=== PATIENT | female | born 1960 | race American Indian/Alaskan Native ===

== ENCOUNTER 2018-01-08 15:32 | Observation (INO) | payer BC, OTHER ==
[~2018-01-08] VITALS: Ht 170.2 cm; Wt 96.6 kg
--- OUTSIDE RECORDS SUMMARY | ~2018-01-08 | XMS | Clinical Summary ---
Demographics + + + | Address | [address] | | | [place] [address] | + + + | Home Phone | | + + + | Preferred Language | Unknown | + + + | Marital Status | Single | + + + | Jewish Affiliation | Unknown | + + + | Race | Unknown | + + + | Ethnic Group | Unknown | + + + Author + + + | Author | [facility] | | | and [place] | + + + | Organization | [facility] | | | and [place] | + + + | Address | Unknown | + + + | Phone | Unavailable | + + + Support + + + + + | Name | Relationship | Address | Phone | + + + + + | Carol Nichole | ECON | [address] | | | | | [place] | | | | | [phone] | | + + + + + Care Team Providers + +------+ + | Care Community Integration Specialist Name | Role | Phone | + +------+ + | Enoc Hayward PA-C | PP | | + +------+ + Allergies No Known Allergies Current Medications + + +-------+---------+------+------+-------+ | Prescription | Sig. | Disp. | Refills | Star | End | Statu | | | | | | t | Date | s | | | | | | Date | | | + + +-------+---------+------+------+-------+ | ibuprofen | Take 100 mg by mouth | | | | | Activ | | (ADVIL,MOTRIN) 100 | every 6 hours as | | | | | e | | MG tablet | needed for Fever. | | | | | | + + +-------+---------+------+------+-------+ Active Problems Not on file Social History + +-------+ +--------+------+ | Tobacco Use | Types | Packs/Day | Years | Date | | | | | Used | | + +-------+ +--------+------+ | Never Smoker | | | | | + +-------+ +--------+------+ + + +---------+ + | Alcohol Use | Drinks/We | oz/Week | Comments | | | ek | | | + + +---------+ + | Yes | | | occ | + + +---------+ + + + + | Sex Assigned at | Date Recorded | | | | + + + | Not on file | | + + + Last Filed Vital Signs + + + + | Vital Sign | Reading | Time Taken | + + + + | Blood Pressure | 146/74 | 11/20/20151729 PDT | + + + + | Pulse | 80 | 11/20/20151729 PDT | + + + + | Temperature | - | - | + + + + | Respiratory Rate | - | - | + + + + | Oxygen Saturation | 98% | 11/20/20151729 PDT | + + + + | Inhaled Oxygen | - | - | | Concentration | | | + + + + | Weight | 90.7 kg (200 lb) | 11/20/20151729 PDT | + + + + | Height | 170.2 cm (5' 7.01") | 11/20/20151729 PDT | + + + + | Body Mass Index | 31.32 | 11/20/20151729 PDT | + + + + Plan of Treatment + + + + + | Health Maintenance | Due Date | Last Done | Comments | + + + + + | Hepatitis C | | | | | Screening | 2 | | | + + + + + | Vaccine: | | | | | Dtap/Tdap/Td (1 - | 1 | | | | Tdap) | | | | + + + + + | Cervical Cancer | | | | | Screening (Pap) | 2 | | | + + + + + | BREAST CANCER | | | | | SCREENING (MAMM Q2 | 2 | | | | YEARS 50-74) | | | | + + + + + | Colorectal Cancer | | | | | Screening | 2 | | | | (Colonoscopy) | | | | + + + + + | Vaccine: Influenza | | | | | (#1) | 8 | | | + + + + + Results Not on filefrom Last 3 Months Insurance + +--------+ +--------+-------+---------+ | Payer | Benefi | Subscriber | Type | Phone | Address | | | t Plan | ID | | | | | | / | | | | | | | Group | | | | | + +--------+ +--------+-------+---------+ | [employer] | [place] | [id number] | Indemn | | | | | FIRST | | ity | | | | | WC | | | | | + +--------+ +--------+-------+---------+ + +--------+ +--------+ + + | Guarantor Name | Accoun | Relation to | Date | Phone | Billing Address | | | t Type | Patient | of | | | | | | | | | | + +--------+ +--------+ + + | BERNICE NICHOLE | Person | Self | [birth year] | [address] | | | al/Fam | | 1959 | | [place] | | | lisseth | | | | [phone] | + +--------+ +--------+ + + | 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
--- OUTSIDE RECORDS SUMMARY | ~2018-01-08 | XMS | Clinical Summary ---
Demographics + + + | Address | [address] | | | [place] [address] | + + + | Home Phone | | + + + | Preferred Language | Unknown | + + + | Marital Status | Single | + + + | Episcopalian Affiliation | Unknown | + + + | Race | Unknown | + + + | Ethnic Group | Unknown | + + + Author + + + | Author | [facility] | | | and [place] | + + + | Organization | [facility] | | | and [place] | [...] [place] | | | | | [address] | | + + + + + Care Team Providers + +------+ + | Care Tire Maker Name | Role | Phone | + [...] | | | + +--------+ +--------+-------+---------+ | [employer] | [employer] | [id number] | Indemn | | | | | [...] | Self | [birth year] | [address] | | | al/Fam | | 1959 | | [place] | | | l[place] | | | | [phone] | + +--------+ +--------+ + + | 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
--- OUTSIDE RECORDS SUMMARY | ~2018-01-08 | XMS | Clinical Summary ---
Demographics + + + | Address | [address] | | | [place] [address] | + + + | Home Phone | | + + + | Preferred Language | Unknown | + + + | Marital Status | Single | + + + | Gnosticism Affiliation | Unknown | + + + | Race | Unknown | + + + | Ethnic Group | Unknown | + + + Author + + + | Author | [facility] | | | and [place] | + + + | Organization | [facility] | | | and [place] | [...] [place] | | | | | [phone] | | + + + + + Care Team Providers + +------+ + | Care Director Mortgage Name | Role | Phone | + [...] | | | + +--------+ +--------+-------+---------+ | [employer] | [employer] | [id number] | Indemn | | | | | [...] | Self | [birth year] | [address] | | | al/Fam | | 1959 | | [place] | | | [place] | | | | [phone] | + +--------+ +--------+ + + | 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
[~2018-01-08 15:32] MED LIST: IBUPROFEN800 MG PO; NORCO 7.5-3251 EACH PO; TRAMADOL HCL50 MG PO
[2018-01-08] MEDS ORDERED: METFORMIN HCL500 MG PO (16:04)
--- NOTE | 2018-01-08 20:07 | NUR ---
PT TO FLOOR VIA STRETCHER WITH DEMETRIUS SUGGS. PT ABLE TO MOVE TO BED ON OWN. PAINFUL IN RLQ 4\10 OK WITH 5\10. HASN'T EATEN IN A COUPLE DAYS DUE TO FEELING UNWELL. TEMP 99. EDUCATED ON CALLING TO GET UP. NPO STATUS. PT DENIES CONCERNS.
--- NOTE | 2018-01-08 21:44 | NUR ---
PT OFF FLOOR WITH BANK TELLER VINNIE SUGGS FOR SURGERY. LR WITH STRAIGHT TUBING WITH PT. PRE SURGICAL SCRUB COMPLETE, CONTACTS OUT.
--- NOTE | 2018-01-09 00:12 | NUR ---
01/09/18 0012 Ángela Florez PT ARRIVES TO PACU WITH APNEIC SPELLS. SHE WILL INTERMITTENLY BEGIN TO SNORE, THEN STOP BREATHING. SHE EITHER JOLTS HERSELF AWAKE OR SHE HAS TO BE STIMULATED.
--- NOTE | 2018-01-09 01:10 | NUR ---
RECEIVED REPORT FROM VINNIE WOODY. ABD DRESSING CLEAN, DRY, AND INTACT. OTIS DRAIN DRAINING SEROUSANGUINOUS FLUID. HYPOACTIVE BOWEL TONES, ABD TENDER AND SOFT ON PALPATION. CONTINUOUS PULSE OX- O2 SATURATIONS WNL ON 2 L VIA NC. PT REPORTS PAIN 10/10, HOWEVER IS DROWSY AT THIS TIME. VISITORS IN ROOM. CALL LIGHT IN REACH.
--- NOTE | 2018-01-09 02:15 | NUR ---
NOTIFIED MD OF PTS PAIN AND DROWSINESS. TELEPHONE ORDER FOR PRN PAIN MEDICATIONS RECEIVED, REPEATED ORDER BACK.
--- NOTE | 2018-01-09 02:15 | NUR ---
IN ROOM FOR VITALS. PT SLEEPING, AWAKENS EASILY. VITALS STABLE. CONTINUOUS PULSE OX IN PLACE ON 2 L OXYGEN. CBG 178, SS INSULIN ADMINISTERED. MID ABD LAP SITE REINFORCED WITH GAUZE, SMALL AMOUNT OF SS DRAINAGE NOTED. PRN PAIN MEDICATION ADMINISTERED FOR 7/10 PAIN IN ABD. SCD'S IN PLACE, CALL LIGHT IN REACH.
--- NOTE | 2018-01-09 03:24 | NUR ---
IN PT ROOM FOR POST OP VITALS, PT SLEEPING, AWAKENS TO VOICE. VITALS STABLE, SATURATIONS 97% ON 2L OXGYEN BY NC. SCDS IN PLACE. SUBRAMANIAN DRAINING. CALL LIGHT IN REACH.
--- NOTE | 2018-01-09 04:15 | NUR ---
IN ROOM TO COMPLETE VITALS. PT ASLEEP, AWAKES EASILY. VITALS STABLE. CALL LIGHT IN REACH.
--- NOTE | 2018-01-09 06:02 | NUR ---
PT RETURNED TO FLOOR FROM SURGERY AT 0110. PT RECIEVED PRN PAIN MEDICATION X1 FOR PAIN 01/29 IN ABD. NO C.O. N/V. IVF INFUSING WNL. O2 SATURATIONS WNL ON 2 L NC. ABD DRESSING CLEAN, DRY, AND INTACT. 2 LAP SITE SUTURES AND STERI STRIPS INTACT, 1 SITE REINFORCED WITH GUAZE AND TAPE. OTIS DRAIN DRAINING SEROUSANGUINOUS FLUID. SCD'S IN PLACE.
--- NOTE | 2018-01-09 06:47 | NUR ---
IN ROOM TO ADMIN ABX. PT SLEEPING, AWAKENED EASILY. PT C.O. PAIN 10/29. PRN PAIN MEDICATIONS ADMINISTERED WITH CRACKERS. BOWEL TONES HYPOACTIVE, ABD SOFT AND TENDER ON PALPATION. EMPTIED OTIS DRAIN, 75 ML, SEROUSANGUINOUS FLUID. DRESSING CLEAN, DRY, AND INTACT. NO NEW DRAINAGE ON LAP SITES. CONTINOUS PULSE OX- SATURATIONS WNL ON 2 LITERS OXYGEN. CALL LIGHT IN REACH.
--- NOTE | 2018-01-09 08:04 | NUR ---
report recieved from police shift commander nurse. pt appears to be sleeping in bed. respirations equal and nonlabored. call light in reach.
--- NOTE | 2018-01-09 10:00 | NUR ---
FAMILY AT BEDSIDE. WATER REFRESHED. DENIES FURTHER NEEDS. CALL LIGHT IN REACH. SCD'S IN PLACE.
--- NOTE | 2018-01-09 11:26 | OR ---
[facility] [address], [place] [address] Signed DATE OF OPERATION: 01/09/2018 SURGEON: Adria Pastor MD PREOPERATIVE DIAGNOSES: 1. Acute perforated appendicitis. 2. Morbid obesity. POSTOPERATIVE DIAGNOSES: 1. Acute perforated appendicitis (advanced) with periappendiceal abscess. 2. Occult cirrhosis of liver. PROCEDURE: 1. Laparoscopy with conversion to open drainage of periappendiceal (pelvic) abscess. 2. Open appendectomy, prolonged, complicated, and difficult. 3. Irrigation of abdomen and placement of drain. ANESTHESIA: General endotracheal, Mitch Bondurant, WEBMETHODS CONSULTANT and local. DRAIN: 7 mm Seth. INDICATION: This 57-year-old morbidly obese [place] woman presented to the emergency room late in the day evaluated by Dr. Almazan where she was found to have tenderness in the right lower abdomen. A CT scan was performed, which showed appendicitis with severe inflammatory change in the right lower abdomen highly suggestive of perforation. She has been fluid resuscitated given intravenous antibiotics, Zosyn, and optimized for operation. It was noted on CT scan there may be fine nodular changes of the liver. She denied alcohol abuse in the present or in the past and is not known to have hepatitis. She is admitted to undergo appendectomy preferred by a laparoscopic approach mindful of the need for possible open procedure and other indicated procedures. The risks of bleeding, infection, and so forth were all reviewed, and well understood. FINDINGS: At laparoscopy she was found to have a dense inflammatory cicatrix of the right lower abdomen including small bowel loops obscuring the appendix in the retroperitoneum. The liver did, in fact, have cirrhotic changes. There was a somewhat distended gallbladder with cholesterolosis as visualized through the gallbladder wall with transillumination. Electronically Signed By: ADRIA PASTOR MD 01/09/18 1126 PATIENT NAME: PRABHA BARRERA OPERATIVE REPORT DATE OF : 64 REPORT #: [id number] PHYSICIAN: ADRIA PASTOR MD PCP: MERCEDEZ CORONA REPORT IS CONFIDENTIAL AND NOT TO BE RELEASED WITHOUT AUTHORIZATION [facility] [address], [place] [address] Signed There was no ascites proper however. Attempts at laparoscopic appendectomy were unsuccessful and conversion to open appendectomy was required. This allowed for drainage of periappendiceal abscess, as well as open appendectomy. The excision of the appendix was very prolonged, complicated, and difficult lasting 2 hours far longer than usual, but accomplished safely incompletely. A drain was placed after irrigation of the abdomen. There was no evidence of inflammatory bowel disease or neoplasm. DESCRIPTION OF PROCEDURE: The patient was brought to the operating room, given a general endotracheal anesthetic. Preoperative antibiotic Zosyn had been given. Sequential compression device stockings were used and heparin subcutaneously administered. Her obese abdomen was prepared with a chlorhexidine solution and draped sterilely. An infraumbilical incision was made and using an open Sanju cannula technique, the abdomen was entered and pneumoperitoneum achieved to a level of 14 mmHg of carbon dioxide gas. Intraabdominal inspection showed no sign of ascites, but did show cirrhotic changes of the liver. The gallbladder was somewhat distended and with cholesterolosis type pattern with transillumination. It was not the acutely inflamed organ, however. The appendix was obscured from view. There was a dense inflammatory rind apparent in the lower quadrant on the right side. A 12 mm epigastric port was placed and a camera was placed at that site. With single hand manipulation, the terminal ileum and cecal area was interrogated, but was very dense. The right lower abdominal 5 mm trocar was then placed and with two hand manipulation the cecum was more easily identified. There was a dense inflammatory cicatrix in the right lower quadrant adjacent to the ileum with very densely adherent small bowel matted loops. Various manipulations were undertaken to unroof and identify the appendix. The base of the appendix could be identified, but the appendix extended into the retroperitoneal medial position that was completely not able to be dissected with a laparoscopic approach. On that basis, conversion to open operation was deemed advisable. The site of the location of the cecum was marked in the abdominal wall. Trocars removed under direct visualization and fascial edges reapproximated at the umbilicus with interrupted 0 Vicryl suture. A transverse incision was made in the right lower abdomen. Dissection carried through the thick abdominal wall pannus. The external oblique was incised along its fibers. The internal oblique muscles and the transversus muscle and the peritoneum identified. The peritoneum was incised and the abdomen was entered. Large hand-held retractors were used to provide entry to the abdomen. Palpation within the Electronically Signed By: ADRIA PASTOR MD 01/09/18 1126 PATIENT NAME: PRABHA BARRERA OPERATIVE REPORT DATE OF : 64 REPORT #: [id number] PHYSICIAN: ADRIA PASTOR MD PCP: MERCEDEZ CORONA REPORT IS CONFIDENTIAL AND NOT TO BE RELEASED WITHOUT AUTHORIZATION [address] [address] Signed abdominal cavity showed a dense cicatrix and mass in the region of the cecum. With various manipulations, the cecum was delivered into the wound. The base of the appendix was identifiable that extended into a very dense inflammatory phlegmon. With various manipulations, a pelvic abscess/phlegmon was encountered and this was broken up and aspiration undertaken. Cultures were obtained. It was clear that the appendix was markedly inflamed, and had perforated. With meticulous care, the surrounding soft tissue was from the appendix. This took a considerable amount of time to ultimately identify the dilated thickened and markedly fibrotic appendix. It was from the mesoappendix and clips were applied as necessary for hemostasis. Ultimately, the distal 3rd of the appendix could be delivered into the wound and dissection was undertaken more proximally. Ultimately, the cecum and appendix could be more fully defined. The thickened markedly inflamed mesoappendix was divided and secured with 2-0 silk ties as appropriate. Once the appendix was skeletonized, one could see the perforated point which was in the first 3rd of the appendix. An Endo-BLAIRE stapling device was used to transect the appendix flush with the cecum. Irrigation was then undertaken copiously in the pelvis, the abdomen and the cecum. Once satisfied that hemostasis was complete after application of a few interrupted 2-0 Vicryl sutures the cecum was replaced in the abdominal cavity, and copious irrigation undertaken. A separate stab incision was made cephalad to the transverse lower abdominal incision and a 7 mm flat Seth drain insinuated into the right lower abdomen juxtaposed to the cecum itself. The peritoneum was reapproximated with running 2-0 PDS suture. Each muscular layer was irrigated with antibiotic containing saline solution and the muscular layers reapproximated with interrupted 2-0 PDS and external oblique similarly reapproximated. Subcutaneous tissue was irrigated with saline and skin closed with interrupted 3-0 Vicryl in a loose way to allow for egress of fluids as necessary. A few Steri-Strips were applied, and the incision was not made to be entirely tight. Mepilex silver sponge dressing was applied incorporating the drain exiting from the abdomen. The umbilical epigastric right lower quadrant incisions were reapproximated with interrupted 2-0 Vicryl, and Steri-Strips were applied. The patient was ultimately extubated and transferred to recovery in good condition. The operation was prolonged, complicated, and difficult related to extent of disease, the perforated appendix and of course her morbid obesity. Blood loss was estimated at approximately 50 mL. Adria Pastor MD Electronically Signed By: ADRIA PASTOR MD 01/09/18 1126 PATIENT NAME: PRABHA BARRERA OPERATIVE REPORT DATE OF : 64 REPORT #: [id number] PHYSICIAN: ADRIA PASTOR MD PCP: MERCEDEZ CORONA REPORT IS CONFIDENTIAL AND NOT TO BE RELEASED WITHOUT AUTHORIZATION [address] [address] Signed KAYLA/RAHEL /[id number] cc: Mercedez Corona Copies: MERCEDEZ CORONA ~ Electronically Signed By: ADRIA PASTOR MD 01/09/18 1126 PATIENT NAME: HOLLYPRABHA OPERATIVE REPORT DATE OF : 64 REPORT #: [id number] PHYSICIAN: ADRIA PASTOR MD PCP: MERCEDEZ CORONA REPORT IS CONFIDENTIAL AND NOT TO BE RELEASED WITHOUT AUTHORIZATION
--- NOTE | 2018-01-09 11:26 | HP ---
[facility] [address] [place] [address] Signed ADMISSION DATE: 01/08/2018 REASON FOR ADMISSION: Acute appendicitis, possibly perforated. HISTORY OF PRESENT ILLNESS: This 57-year-old woman had vague upper abdominal pain approximately 3 to 4 days ago, but this progressed, and now having right lower abdominal pain for at least 48 hours. She presented to the emergency room where she was found to have an elevated white count. She was evaluated by Dr. Almazan with high suspicion of appendicitis. A CT scan was performed, which confirmed appendicitis, but also possible perforation, though there was no well-formed abscess. She is admitted for further evaluation and care. PAST MEDICAL HISTORY: Significant for aqu-dogrpey-iboxyxjod diabetes mellitus. She has no other ongoing medical problems that she admits to at this time. She denies usual or chronic alcohol use though. Therefore, CT scan did describe possible nodularity of the liver without associated neoplasm nor sign of ascites. The patient is unmarried. She does have two adult children. She works at the [employer] and food and [employer]. She is a . REVIEW OF SYSTEMS: She denies any shortness of breath or chest pain. Has had no dysphagia, or dysuria. Denies any hematemesis or blood per rectum. She has no precordial chest pain or dyspnea. PHYSICAL EXAMINATION: GENERAL: An obese woman who does not look to be severely uncomfortable. Mucous membranes are dry. Trachea is midline. CHEST: Clear. HEART: Regular without murmur. ABDOMEN: Obese, but soft. Rovsing sign is positive. There is tenderness at McBurney point. She has no clinical evidence of ascites though she does have an obese abdomen. EXTREMITIES: No clubbing, cyanosis, or edema. Her sequential compression device stockings are in place. The patient is postmenopausal. CT scan report has been reviewed describing appendicitis with possible perforation and some nodularity to the liver, but no sign of ascites. ASSESSMENT: Electronically Signed By: ADRIA PASTOR MD 01/09/18 1126 PATIENT NAME: PRABHA BARRERA HISTORY AND PHYSICAL DATE OF : 64 REPORT #: [id number] PHYSICIAN: ADRIA PASTOR MD PCP: RENATO CORONA REPORT IS CONFIDENTIAL AND NOT TO BE RELEASED WITHOUT AUTHORIZATION [facility] [address] [place] [id number] Signed She has clinical findings and radiographic findings of appendicitis with possible perforation, but without well-formed abscess. She is tender in the McBurney's point and somewhat dehydrated. She has been started on Zosyn antibiotic by the emergency room physician and additional fluid will be given. She last ate this morning a piece of bread. We will plan for operation this evening if appropriate provided resuscitation is adequate. Discussed risks of operation including but not limited to, bleeding, infection, need for open rather than a laparoscopic approach, certain need for drain of perforation is noted, and other unforeseen complications including need for additional treatment. She understands all this and wished to proceed. MD KAYLA Cazares/FIDELL /[id number] cc: [facility] Copies: [facility] ~ Electronically Signed By: ADRIA PASTOR MD 01/09/18 1126 PATIENT NAME: PRABHA BARRERA HISTORY AND PHYSICAL DATE OF : 64 REPORT #: [id number] PHYSICIAN: ADRIA PASTOR MD PCP: RENATO CORONA REPORT IS CONFIDENTIAL AND NOT TO BE RELEASED WITHOUT AUTHORIZATION
--- NOTE | 2018-01-09 12:20 | NUR ---
PT REPORTED 7/10 PAIN. PRN TORIDOL GIVEN. DENIES FURTHER NEEDS.
--- NOTE | 2018-01-09 13:06 | NUR ---
DID PATIENT'S BLOOD SUGAR CHECK FOR LUNCH.
--- NOTE | 2018-01-09 13:16 | NUR ---
PT OOB TO AMBULATED HALLS WITH THIS NURSE. PT WAS ABLE TO 2 LAPS WITH FWW FOR STABILITY. PT REPORTED PAIN 5/10. DENIED NEED FOR INTERVENTION AT THIS TIME. PT BACK TO BED, CALL LIGHT IN REACH. REFRESHED PO WATER.
[2018-01-09] MEDS ORDERED: CRESTOR5 MG PO (14:09)
[2018-01-09] MEDS ORDERED: ZESTRIL2.5 MG PO (14:11)
[2018-01-09] MEDS ORDERED: VITAMIN D5000 UNI1 PO (14:13)
[2018-01-09] MEDS ORDERED: IBUPROFEN600 MG PO (14:15)
--- NOTE | 2018-01-09 14:15 | NUR ---
MED REC COMPLETE
--- NOTE | 2018-01-09 14:27 | NUR ---
SCHEDULED ZOSYN ADMINISTERED. PT REPORTS PAIN 5/[address] DRAINING YELLOW URINE. SCD'S IN PLACE. ABD DRESSING IS C/D/I. OTIS DRAIN DRAINING SEROSANG DRAINAGED.
--- NOTE | 2018-01-09 15:57 | NUR ---
ROUNDED WITH DR PASTOR. PLAN OF CARE DISCUSSED. ALL QUESTIONS ANSWERED. DENIES FURTHER NEEDS. CALL LIGHT IN REACH. NEW ORDERS RECIEVED.
--- NOTE | 2018-01-09 16:09 | NUR ---
MARILYNN PAULSON PT TOLERATED WELL.
--- NOTE | 2018-01-09 18:45 | NUR ---
PT HAD GOOD DAY. MARILYNN CARR'D. PAIN WELL UNDER CONTROL WOTH TORIDOL AND PERCOCET. DRESSING C/D/I. OTIS DRAING MODERATE AMOUNT SERSANG. LR @125. ZOSYN.
--- NOTE | 2018-01-09 19:30 | NUR ---
charge nurse rounding note:, Watching tv, no c/o pain, ivf infusing, scds in place
--- NOTE | 2018-01-09 19:40 | NUR ---
BEDSIDE REPORT RECEIVED FROM VINNIE FOSTER. PT AWAKE, LYING IN BED, SPO2 92% ON RA. PT RATES PAIN IN ABD 5/10. SMALL AMT SHADOWING ON MEPILEX, LAP SITES CDI WITH GAUZE AT UMBILICUS. SCDS IN PLACE. IVF INFUSING WNL. CALL LIGHT IN REACH.
--- NOTE | 2018-01-09 22:05 | NUR ---
VITALS AND I&OS DONE AND CHARTED. HELPED PT TO THE BATHROOM AND BACK TO BED WITH HER FWW. CHANGED HER BED DUE TO HER SWEATING AND GETTING BEDDING WET. BEDSIDE TABLE AND CALL LIGHT IN REACH. ICE AND JELLO GIVEN.
--- NOTE | 2018-01-09 22:18 | NUR ---
PT ASSESSMENT COMPLETE. BOWEL TONES ACTIVE X 4, ABD SOFT, MINIMAL SHADOWING SS FLUID ON GAUZE AT UMBILICUS AND MEPILEX. PT RATES PAIN 5/10, ICE PACK TO ABD AND PRN TORADOL IV ADMINISTERED. IV ANTIBIOTIC INFUSING WNL. PT GIVEN JELLO, TEA. CALL LIGHT IN REACH.
--- NOTE | 2018-01-09 23:41 | NUR ---
CHECKED ON PT, APPEARS TO BE SLEEPING, BREATHING NON-LABORED, CONT. PULSE OX IN PLACE, SPO2 WNL ON RA. SCDS ON.
--- NOTE | 2018-01-10 00:06 | NUR ---
HELPED PT TO THE BATHROOM AND BACK TO BED WITH HER FWW. BEDSIDE TABLE AND CALL LIGHT WITHIN REACH. SCD'S TURNED BACK ON. PT NEEDS NOTHING ELSE AT THIS TIME.
--- NOTE | 2018-01-10 01:29 | NUR ---
CHECKED ON PT, BREATHING NON-LABORED, SPO2 92% ON RA, HR 82 WITH CONT. PULSE OX. LIGHTS OFF IN ROOM. SCDS IN PLACE.
--- NOTE | 2018-01-10 02:37 | NUR ---
HELPED PT TO THE BATHROOM AND BACK TO BED WITH HER FWW. ON THE WAY TO THE BATHROOM PT WAS LEAKING URINE. RED WIPED THE FLOOR. REPLACED HER SCD'S AND SOCKS. ALSO CHANGER HER GOWN AND DRAW SHEET, SHE HAD SOME LEAKING FROM HER OTIS SITE. BEDSIDE TABLE AND CALL LIGHT IN REACH. PT NEEDS NOTHING MORE AT THIS TIME.
--- NOTE | 2018-01-10 02:47 | NUR ---
PT UP TO RESTROOM FOR VOID WITH TRANSPORT RN JULY ASSIST AND BACK TO BED, SCDS ON. NEW BAG IVF INFUSING WNL. PT RATES PAIN 4/10 IN ABD, DENIES PAIN W PALPATION, ABD SOFT. SMALL AMT SS DRAINAGE FROM CENTER OF MEPILEX DRESSING, REINFORCED WITH OP SITE, AND OTIS DRAIN PINNED TO GOWN. OTIS EMPTIED 30 ML SS DRAINAGE. SATURATIONS WNL ON RA. CALL LIGHT IN REACH, LIGHTS OFF IN ROOM. WARM BLANKET PROVIDED.
--- NOTE | 2018-01-10 05:29 | NUR ---
IN PT ROOM FOR SCHEDULED MED ADMINISTRATION, PT RATES PAIN IN ABD 10/29, PRN PAIN MEDICATIONS ADMINISTERED. TEMPERATURE 101.1 ORALLY. PT GIVEN CRACKERS W PRN PERCOCET. SCDS ON. IV ANTIBIOTIC INFUSING WNL. CALL LIGHT IN REACH.
--- NOTE | 2018-01-10 05:35 | NUR ---
PT UP TO RESTROOM WITH SBA FOR QS VOIDS. OTIS DRAIN DRAINING SS FLUID. SMALL AMT OF SS DRAINAGE THIS SHIFT ON MEPILEX, REINFORCED WITH OP SITE. LAP SITES CDI. BOWEL TONES ACTIVE X 4, ABD SOFT, NON-TENDER W PALPATION, PT DENIES NAUSEA. PRN PAIN MEDICATIONS ADMINISTERED. IVF AND IV ANTIBIOTICS.
--- NOTE | 2018-01-10 07:34 | NUR ---
RECEIVED REPORT FROM BENZENE WASHER NURSE. PT IN BED. LR @ 125. SCD'S IN PLACE. REQUESTING COFFEE. DENIES FURTHER NEEDS. NO N/V AT THIS TIME. SOME SHADOWING ON MEPLEX, SMALL AMOUNT SEROSANG. CALL LIGHT IN REACH,. ZOSYN INFUSING AT CORRECT RATE.
--- NOTE | 2018-01-10 11:49 | NUR ---
PT REPORTS PAIN 09/29. PRN TORIDOL GIVEN. LUNCH AT BEDSIDE. NO N/V. CALL LIGHT IN REACH.
--- NOTE | 2018-01-10 11:50 | NUR ---
DID PATIENT'S BLOOD SUGAR CHECK BREAKFAST AND LUNCH.
--- NOTE | 2018-01-10 11:58 | NUR ---
ROUNDED WITH DR PASTOR. PLAN OF CARE DISCUSSED. NEW ORDERS RECEIVED.
--- NOTE | 2018-01-10 12:34 | NUR ---
DC'D IV FLUIDS. DC'D ABDOMINAL DRESSING. APPLIED GAUZE AND TAPE OVER OTIS SITE D/T SMAAL AMOUNT SEROSANG DRAINAGE. CALL LIGHT IN REACH. DENIES NEEDS.
--- NOTE | 2018-01-10 14:22 | NUR ---
PATIENT AND I WALKED ONE LAP AROUND MED SURG.
--- NOTE | 2018-01-10 18:51 | NUR ---
GOOD DAY. PLAN FOR DC TOMORROW. PO ANTIBIOTICS. OP SITE OPEN TO AIR. GAUZE AROUND OTIS DRAIN. SM AMOUNT OF DRAINAGE AROUND OTIS DRAIN. GOOD U/O. NO BM SINCE . BOWEL TONES ACTIVE. LOW GRADE FEVER OFF 99.1.
--- NOTE | 2018-01-10 20:00 | NUR ---
RECEIVED REPORT AT 1900, FOUND PT IN BED WITH FAMILY AT BEDSIDE. PT HAD NO NEEDS OR CONCERNS AT THAT TIME.
--- NOTE | 2018-01-10 20:30 | NUR ---
RECOVERY RN ROUNDING. PT ASSISTED UP TO BATHROOM. LINENS ON BED CHANGED PER PT REQUEST. PT ASSISTED BACK TO BED. PT DENIES OTHER NEEDS AT THIS TIME. CALL LIGHT AND PERSONAL ITEMS WITHIN REACH.
--- NOTE | 2018-01-10 22:00 | NUR ---
V/S ARE WDL, PT KNOWS HOW TO DRAIN HER OTIS-DRAIN HERSELF. ALL LOBES ARE CLEAR, PT IS PASSING GAS, ABD SOUNDS ARE PRESENT, INCISIONS ARE D/I, BS WAS 189, PT RECEIVED 3 UNITS OF INSLULIN PER ORDER. NO NEW CONCERNS AT THIS TIME. PAIN IS WELL CONTROLLED SO FAR.
--- NOTE | 2018-01-11 | NUR ---
PT STATED PAIN WAS 5/10. IV TORADOL WAS GIVEN PER ORDER. PT WILL TRY TO SLEEP NOW. WILL CONTINUE TO MONITOR.
--- NOTE | 2018-01-11 02:00 | NUR ---
PT AT THIS TIME IS SLEEPING. PAIN SEEMS WELL CONTROLLED WITH PRN PAIN MEDS. NO NEW CONCERNS AT THIS TIME.
--- NOTE | 2018-01-11 06:34 | NUR ---
VITALS AND I&OS DONE AND CHARTED. GARBAGES EMPTIED. ROOM CLEANED UP. FRESH ICE WATER GIVEN. BEDSIDE TABLE AND CALL LIGHT IN REACH.
--- NOTE | 2018-01-11 06:37 | NUR ---
PT OVERALL HAD AN UNEVENTFUL NIGHT. PAIN IS WELL CONTROLLED WITH PRN PAIN MEDS. INCISIONS ARE C/I. PT HAS REMAINED ABEBRILE SO FAR. ALL LOBES ARE CLEAR AND PT IS INDEPENDANT IN ROOM. NO NEW CONCERNS SO FAR THIS SHIFT.
--- NOTE | 2018-01-11 07:30 | NUR ---
RECIEVED REPORT FROM ELECTRICAL INSTRUMENT MAKER NURSE. PT IN BED. REPORTS PAIN 01/29. TORIDOL GIVEN. PT REPORTED "PERCOCET MAKES ME DIZZY". SBA TO CHAIR FOR BREAKFAST. COFFEE PROVIDED. DENIES FURTHER NEEDS.
--- NOTE | 2018-01-11 08:44 | NUR ---
board updated breakfast ordered and ate, patient needed no other assistance at the time, will recheck soon
[2018-01-11] MEDS ORDERED: AMOX TR-K CLV1 EAC1 PO (10:38)
[2018-01-11] MEDS ORDERED: OXYCODON-ACETA1 EAC2 PO (10:39)
[2018-01-11] MEDS ORDERED: NORCO 5-325 TA1 EACH PO (10:49)
--- NOTE | 2018-01-11 11:04 | NUR ---
TOOK PATEINTS IV OUT LEFT HAND CATHATER IN TACT.
--- NOTE | 2018-01-12 13:13 | DS ---
[facility] [address], [place] [address] Signed ADMISSION DATE: 01/08/2018 DISCHARGE DATE: 01/11/2018 REASON FOR ADMISSION: Appendicitis. HISTORY OF PRESENT ILLNESS: This 57-year-old woman has had vague upper abdominal pain 3-4 days at least, which progressed to having lower abdominal pain for at least 48 hours. She was evaluated by Dr. Almazan with suspicion of appendicitis. A CT scan was performed, which confirmed appendicitis, but probable perforation and marked inflammatory change in the right lower abdomen. She does have epi-otpydoj-nwzghljxj diabetes mellitus. She does drink alcohol on a routine basis. It was noted that she had on CT scan, possible nodular changes of liver as well. She is admitted for further evaluation and care. PHYSICAL EXAMINATION: GENERAL: Showed an obese woman who did not look to be severely uncomfortable. Mucous membranes were dry. Trachea midline. CHEST: Clear. HEART: Regular without murmur. ABDOMEN: Obese, but soft. Rovsing sign was positive. There was tenderness at McBurney's point. There was no clinical evidence of ascites. HOSPITAL COURSE: She was admitted, given fluid resuscitation, and parenteral pain medication. On evening of admission, she underwent laparoscopy with conversion to open appendectomy and drainage of periappendiceal (pelvic) abscess. Operation was markedly difficult. Thus, the perforation and inflammatory process were quite extensive and the appendix like vulcanized rubber to the surrounding mesentery. Incidentally noted particular on the laparoscopic portion was that of nodular changes of liver consistent with cirrhosis. She did not have ascites per se, however. A drain was placed at time of operation. She was maintained on broad-spectrum antibiotic meropenem. Postoperatively, she had improvement, though did have some elevated temperature to at least 101.3. Continued use of meropenem was maintained and drain showed no sign of purulent drainage. She was transitioned to Augmentin antibiotic and on day of discharge, she was afebrile, had normal white count of 10.2. Tolerating the Augmentin well. The drain was placed, showed only serosanguineous fluid and therefore, it was removed. Electronically Signed By: ADRIA PASTOR MD 01/12/18 1313 PATIENT NAME: PRABHA BARRERA DISCHARGE SUMMARY DATE OF : 64 REPORT #: [id number] PHYSICIAN: ADRIA PASTOR MD PCP: MERCEDEZ CORONA REPORT IS CONFIDENTIAL AND NOT TO BE RELEASED WITHOUT AUTHORIZATION [facility] [address] [place] [address], [place] [address] Signed She has showered and is recommended to do so on a daily basis. Steri-Strips that are on should remain in place. Right lower abdominal incision appears to be healing well. She is advised to avoid lifting more than 20 pounds for the next four weeks. She is permitted to work on January 20 as desired; however, if she is mindful of those restrictions. She will return to see me in approximately four weeks in my office. DISCHARGE MEDICATIONS: Will include, 1. Augmentin 875 mg one p.o. b.i.d. with meals #14. 2. [place] 5/325 1-2 p.o. q.4 hours p.r.n. pain #15 g p.o. daily. 3. Lisinopril 2.5 mg p.o. daily. 4. Vitamin D 5 size 5000 unit capsule daily. 5. Ibuprofen 600 mg p.o. t.i.d. as needed for pain. DISCHARGE DIAGNOSES: 1. Severe acute perforated appendicitis with periappendiceal abscess. 2. Status post laparoscopy with conversion to open drainage of pelvic abscess and open appendectomy and placement of drain. 3. Occult cirrhosis noted on laparoscopy and with evidence on CT scan there are fine nodular changes. No evidence of ascites. 4. Diabetes mellitus ([id number]). 5. Hypertension. 6. Dyslipidemia. MD KYALA Cazares/MODL /[id number] cc: Mercedez Corona [facility] Electronically Signed By: ADRIA PASTOR MD 01/12/18 1313 PATIENT NAME: PRABHA BARRERA DISCHARGE SUMMARY DATE OF : 64 REPORT #: [id number] PHYSICIAN: ADRIA PASTOR MD PCP: MERCEDEZ CORONA REPORT IS CONFIDENTIAL AND NOT TO BE RELEASED WITHOUT AUTHORIZATION [address] [place] [address] Signed Copies: MERCEDEZ CORONAO,SHILPI ~ Electronically Signed By: ADRIA PASTOR MD 01/12/18 1313 PATIENT NAME: PRABHA BARRERA DISCHARGE SUMMARY DATE OF : 64 REPORT #: [id number] PHYSICIAN: ADRIA PASTOR MD PCP: MERCEDEZ CORONA REPORT IS CONFIDENTIAL AND NOT TO BE RELEASED WITHOUT AUTHORIZATION
== END 2018-01-11 11:30 | disposition home or self-care (01) ==
LOC: ED 15:32 → MS 15:34
PROVIDERS: ADMIT Surgery
PROC: 0DTJ0ZZ Resection of Appendix, Open Approach (ICD-10-PCS; principal; 2018-01-08 21:30)
DX: K35.3 Acute appendicitis with localized peritonitis (principal); K74.60 Unspecified cirrhosis of liver; E11.9 Type 2 diabetes mellitus without complications; E78.5 Hyperlipidemia, unspecified; I10 Essential (primary) hypertension; E66.01 Morbid (severe) obesity due to excess calories; Z78.0 Asymptomatic menopausal state; Z79.899 Other long term (current) drug therapy; Z53.31 Laparoscopic surgical procedure converted to open procedure; Z68.33 Body mass index [BMI] 33.0-33.9, adult; Z23 Encounter for immunization
CPT/HCPCS: 00840; 36415; 74177; 80053; 80074; 81001; 82247; 82465; 83615; 83690; 84100; 84478; 84550; 85025; 96361; 96365; 96366; 96372; 96375; 96376; 99285; G0008; G0378; J1644; J1815; J1885; J2250; J2270; J2405; J2543; J2704; J2765; J3010; J7030; J7120; Q9967

== ENCOUNTER 2021-11-27 14:34 | Inpatient (IN) | payer BC, OTHER ==
[~2021-11-27] VITALS: Ht 170.2 cm; Wt 90.0 kg
--- NOTE | 2021-11-27 08:35 | NUR ---
REPORT RECEIVED FROM NAPHTHALENE STILL OPERATOR. PATIENT ARRIVED VIA STRETCHER TO UNIT. PATIENT TRANSFERED TO HOSPITAL BED VIA INDEPENDENT TRANSFER. PATIENT ORIENTED TO ROOM AND CALL LIGHT. SECOND BOLUS LITER OF LR INFUSING. BED IN LOW POSITION CALL LIGHT IN REACH AND FAMILY AT BEDSIDE.
[~2021-11-27 14:34] MED LIST changes: +AMOX TR-K CLV1 EAC1 PO; +CRESTOR5 MG PO; +IBUPROFEN600 MG PO; +METFORMIN HCL500 MG PO; +NORCO 5-325 TA1 EACH PO; +OXYCODON-ACETA1 EAC2 PO; +VITAMIN D5000 UNI1 PO; +ZESTRIL2.5 MG PO
--- NOTE | 2021-11-27 23:17 | NUR ---
PT REMAINS RESTING IN BED WITH HER EYES CLOSED. IVF INFUSING ORDERED. RESPIRATION NOTED AND ARE EVEN AND UNLABROED. PT REMAINS ON ROOM AIR, SPO2 90%. PT IN NO APPARENT DISTRESS AND WAS LEFT UNDISTURBED. CALL LIGHT IN REACH, WILL CONTINUE PLAN OF CARE.
--- NOTE | 2021-11-28 | NUR ---
PT USED CALL LIGHT, PT RESTING IN BED AWAKE AND ALERT ON ROOM AIR, IVF INFUSING. PT STATES SHE NEEDED TO VOID. PT ABLE TO WALK TO THE BATHROOM TO VOID 100ML CONCENTRATED URINE AND WALK BACK TO THE BED WITHOUT ASSISTANCE. PT DENIED SHORTNESS OF BREATH AND LIGHTHEADEDNESS WHEN ASKED. VITALS THEN TAKEN AND ASSESSMENT COMPLETED (SEE CHART). PT ORIENTED X4, HEART RYTHM REGULAR, LUNGS CLEAR IN UPPER LOBES AND CLEAR IN THE BASES. ABDOMEN SOFT, ACTIVE BOWEL TONES PRESENT. PULSES STRONG, EXTREMITIES WARM, PT DENIES N&T. PT REPORTS NO FURTHER NEEDS AFTERWARDS AND REMAINS RESTING IN BED. CALL LIGHT IN REACH, BED IN LOWEST POSITION, IVF INFUSING, WILL CONTINUE PLAN OF CARE.
--- NOTE | 2021-11-28 01:10 | NUR ---
IV PUMP ALARMING, DISTAL OCCLUSION. IV SITE WNL, IVF RESTARTED AND NOW INFUSING. PT PROVIDED WITH ICE WATER PER HER REQUEST AND REPORTS NO FURTHER NEEDS. CALL LIGHT IN REACH, BED IN LOWEST POSITION, WILL CONTINUE PLAN OF CARE.
--- NOTE | 2021-11-28 04:00 | NUR ---
PT RESTING IN BED WITH EYES CLOSED. PT ON ROOM AIR, SPO2 90-92%, IVF INFUSING. PT RESPIRATIONS NOTED, ARE EVEN AND UNLABORED. PT LEFT UNDISTURBED AT THIS TIME, WILL CONTINUE PLAN OF CARE. CALL LIGHT IN REACH, BED IN LOWEST POSITION.
--- NOTE | 2021-11-28 05:15 | NUR ---
CALL LIGHT USED BY PT. PT STATED SHE NEEDED TO VOID. PT ABLE TO WALK TO BATHROOM TO VOID 250ML OF URINE AND WAS ALSO NOTED TO BE INCONINENT. NEW ATTENDS PROVIDED, BED LINENS CHANGED. AFTER PT GOT BACK INTO BED HER VS AND ASSESSMENT WERE COMPLETED (SEE CHART). PT THEN PROVIDED WITH ICE WATER. FARMER CASH GRAIN NOW IN ROOM TO DRAW LABS, PT REPORTS NO FURTHER NEEDS, CALL LIGHT IN REACH, BED IN LOWEST POSITION, WILL CONTINUE PLAN OF CARE.
--- NOTE | 2021-11-28 07:45 | NUR ---
VITALS AND I&OS CHARTED. PATIENT HAS BEEN UP TO BR AND IS SITTING UP FIR BREAKFAST. FRESH ICE WATER PROVIDED. RN AT BEDSIDE
[2021-11-28] MEDS ORDERED: LOSARTAN POTASS25 MG PO (10:40)
[2021-11-28] MEDS ORDERED: JANUMET XR 50-1 EAC1 PO (10:42)
--- NOTE | 2021-11-28 11:26 | NUR ---
MED REC COMPLETED
--- NOTE | 2021-11-28 12:30 | NUR ---
TRANSFER ORDERS TO MEDICAL FLOOR RECIEVED. TOOK LUNCH POOR, DENIES NAUSEA. DAUGHTER IS IN ROOM. PATIENT HAS BEEN UP TO BR SEVERAL TIMES TODAY. IS STABLE ON FEET.
--- NOTE | 2021-11-28 12:31 | NUR ---
PATIENT UP TO BR WITH SBA. VITALS CHARTED
--- NOTE | 2021-11-28 12:35 | NUR ---
IVF DECREASED TO 75 ML/HR.
--- NOTE | 2021-11-28 17:42 | NUR ---
ADMINISTERED SCHEDULED MEDS. PT HAS DTR IN ROOM AND DINNER ON TRAY. TALKING ON PHONE ATT
--- NOTE | 2021-11-28 17:54 | NUR ---
PT IN BED TALKING ON PHONE. DTR AT BEDSIDE. DINNER ON TRAY. ADMINISTERED SCHEDULED MEDS.
--- NOTE | 2021-11-28 19:15 | NUR ---
shift rpeort received from sukhdevinluigi swanson, during report, flue cleaner made rn aware of elevated temp-101.1. temp reassessed at approx 1950 after using is and excess blankets removed- oral temp of 102. dr block made aware, okay to give po tylenol. dr block to place orders for blood cultures.
--- NOTE | 2021-11-28 21:00 | NUR ---
pt's SISTER FRANCIA HOLLY CALLED AND ASKED FOR UPDATE, pt OKAYED UPDATE. UPDATE PROVIDED AND QUESTIONS ANSWERED.
--- NOTE | 2021-11-28 22:29 | NUR ---
assessment complete, scheduled meds given -see emar. pt deneis pain and nausea. bowel tones active. iv sites x2 wnl, fluids infusing as directed. pt denies pain or burning with urination, voidng qs. will continue to monitor. temp improving, now 99.4. will continue to monitor, call light in reach.
--- NOTE | 2021-11-29 00:20 | NUR ---
pt RESTING IN BED, EYES CLOSED. ON RA. RR EVEN AND UNLABORED, NO DISTRESS NOTED. CALL LIGHT IN REACH. WILL CONTINUE TO MONITOR. IV SITE WNL, FLUIDS INFUSING DIRECTED.
--- NOTE | 2021-11-29 01:11 | NUR ---
CALL LIGHT ANSWERED, NEW BAG HUNG AND INFUSING DIRECTED. ASSESSMENT COMPLETE, NO ACUTE CHANGES. TEMP AFEBRILE, 98.1. ASSISTED TO THE BATHROOM AND BACK TO BED. NEW ATTENDS IN PLACE. NEW LINENS ALSO IN PLACE, CALL LIGHT IN REACH.
--- NOTE | 2021-11-29 03:48 | NUR ---
PT CALLED, UP TO BATHROOM, FRESH ICE WATER PROVIDED, WARM BLANKETS PROVIDED. NO OTHER NEEDS.
--- NOTE | 2021-11-29 05:33 | NUR ---
VSS AND I&O'S COMPLETE. FRESH WATER AT BEDSIDE. NO ADDITIONAL NEEDS OR CONCERNS, CALL LIGHT IN REACH.
--- NOTE | 2021-11-29 07:30 | NUR ---
MORNING REPORT GIVEN. PT SLEEPING AND APPEARS COMFORTABLE. RESPIRATIONS EVEN AND REGULAR. IV FLUIDS RUNNING. CALL LIGHT WITHIN REACH.
--- NOTE | 2021-11-29 10:13 | NUR ---
TO PT ROOM TO CHECK ON PT. PT IS A/O. HELPED PT TO RESTROOM. DENIES PAIN ATT.
--- NOTE | 2021-11-29 12:36 | NUR ---
PT USED CALL LIGHT FOR ASSITANCE TO RESTROOM. PT WAS STEADY ON HER FEET, ONLY NEEDS HELP W/IV POLE. PT PERFORMED OWN PHOEBE CARE. NEW BRIEF. PERFOMRED HANDWASHING. AMBULATED BACK TO BED. REFILLED PT WATER. PT RESTING COMFORTABLY WATCHING TELEVISION. CALL LIGHT IN REACH.
--- NOTE | 2021-11-29 14:00 | NUR ---
Pt smiling and laughing while on the phone. Shakes her head "no" when asked if she needs anything. No change in plan of care.
--- NOTE | 2021-11-29 14:11 | NUR ---
PT SLEEPING-DID NOT DISTURB. WILL CHECK BACK
--- NOTE | 2021-11-29 14:30 | NUR ---
TO PT ROOM FOR ASSESSMENT AND TO CHECK ON PT. PT IS A/O. IV FLUIDS BAG REPLACED. CALL LIGHT WITHIN REACH.
--- NOTE | 2021-11-29 17:02 | NUR ---
TO PT ROOM FOR MEDICATION ADMINISTRATION. PT IS A/O. NO COMPLAINTS ATT. IV FLUIDS RUNNING AT 75Ml/HR.
--- NOTE | 2021-11-29 18:26 | NUR ---
TO PT ROOM TO CHECK ON PT. PT IS A/O, RESPIRATIONS EVEN AND REGULAR. FAMILY AT BEDSIDE. NO COMPLAINTS ATT. CALL LIGHT WITHIN REACH.
--- NOTE | 2021-11-29 19:58 | NUR ---
PT. VITALS AND I/OS CHARTED. FRESH ICE WATER PROVIDED. CALL LIGHT LEFT WITHIN REACH. NO OTHER IMMEDIATE NEEDS AT THIS TIME.
--- NOTE | 2021-11-29 20:00 | NUR ---
Patient resting in bed. Watching television. Denies needs at this time. Call light within reach.
--- NOTE | 2021-11-29 23:45 | NUR ---
call light answered, pt up to void and back in bed. steady on feet. call light in reach, no additional needs or concerns verbalized.
--- NOTE | 2021-11-30 00:42 | NUR ---
Patient sleeping in bed. Call light within reach. Continues to infuse LR at rate of 75ml/hr.
--- NOTE | 2021-11-30 02:48 | NUR ---
call light answered, pt up to void sba and is steady on feet. pt back in bed, no additional needs or concerns verbalized. call light in reach.
--- NOTE | 2021-11-30 04:24 | NUR ---
Patient has had uneventful shift. Alert and fully oriented. Calls appropriately. Has not complained of pain. Has remained afebrile. Lung sounds clear bilat. On RA. Bowel sounds active. Infusing LR at rate of 75 through IV in right hand. Saline locked Left AC. Ambulates Independently in room. BG 251 at HS. Given 5 units Novolog per order.
--- NOTE | 2021-11-30 09:01 | NUR ---
MORNING ASSESSMENT COMPLETE. PT AWAKE IN BED, FINISHED BREAKFAST. DENIES PAIN OR NEEDS AT THIS TIME. INDEPENDENT IN ROOM. CALL LIGHT IN REACH.
--- NOTE | 2021-11-30 10:44 | NUR ---
PT AWAKE IN BED WATCHING TV. DENIES NEEDS AT THIS TIME. CALL LIGHT IN REACH.
[2021-11-30] MEDS ORDERED: CEFPODOXIME PR200 MG PO (11:45)
[2021-11-30] MEDS ORDERED: GLIPIZIDE XL5 MG PO (11:46)
== END 2021-11-30 13:20 | disposition home or self-care (01) | DRG 872 ==
LOC: ED 14:34 → CCU 19:58 → MS 11-28 16:40
PROVIDERS: ADMIT Internal Medicine; ATTEND Internal Medicine
DX: A41.51 Sepsis due to Escherichia coli [E. coli] (principal); N10 Acute pyelonephritis; E11.9 Type 2 diabetes mellitus without complications; I10 Essential (primary) hypertension; E78.00 Pure hypercholesterolemia, unspecified; R63.0 Anorexia; Z98.890 Other specified postprocedural states; Z79.899 Other long term (current) drug therapy; Z79.84 Long term (current) use of oral hypoglycemic drugs; Z79.811 Long term (current) use of aromatase inhibitors; Z68.30 Body mass index [BMI] 30.0-30.9, adult; Z20.822 Contact with and (suspected) exposure to COVID-19
CPT/HCPCS: 36415; 71045; 74177; 80048; 80053; 81001; 83036; 83605; 85007; 85025; 87040; 87088; 87502; A9270; J0692; J0696; J1650; J1815; J7121; Q9967; U0003